=== PATIENT | male | born 1960 | race Caucasian/White ===

== ENCOUNTER 2016-11-24 10:04 | Emergency (ER) | payer OTHER ==
[~2016-11-24] VITALS: Ht 188 cm; Wt 143.0 kg
[~2016-11-24 10:04] MED LIST: CEPH500C3 PO; GLUCTAB PO; LISI-360 PO; OXYC15TA PO
[2016-11-24 10:08] VITALS: BP 161/101; PULSE 82; RESP 16; TEMP 98.2; O2SAT 98
[2016-11-24] MEDS ORDERED: LISI-519 PO (10:27)
[2016-11-24] MEDS ORDERED: OXYC15TA PO (10:27)
[2016-11-24] MEDS ORDERED: PROZ40CA PO (10:27)
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
[2016-11-24] MEDS ORDERED: IBUP-232 PO (10:53)
[2016-11-24] MEDS ORDERED: ROBA750T PO (10:53)
== END 2016-11-24 14:13 | disposition home or self-care (01) ==
LOC: NEPK 10:04
DX: S39.012A Strain of muscle, fascia and tendon of lower back, initial encounter (principal); V43.52XA Car driver injured in collision with other type car in traffic accident, initial encounter; Y92.488 Other paved roadways as the place of occurrence of the external cause
CPT/HCPCS: 72100; 99283

== ENCOUNTER 2018-01-14 08:58 | Observation (INO) ==
[2018-01-14] MEDS ORDERED: Aspirin 325 MG Tablet PO ONE (09:40)
--- NOTE | 2018-01-14 09:50 | ED ---
HPI General Chief complaint: Respiratory Symptoms Stated complaint: SOB/Chest Pain Complaint Time Seen by Provider: 01/14/18 09:32 Source: patient Mode of arrival: ambulatory Limitations: no limitations History of Present Illness HPI narrative: 57yo M with PMH of HTN, CAD [place] 15 years ago, DM not on any medications right now, ?COPD here with c/o chest tightness and sob for 3-4 days. Said sob and chest tightness occurs when he lies down or walks. Said he does not feel sob while sitting down. It has worsened since last night. +Cig smoker. + Cough. Denies any fever, hemoptysis, history of PE/DVT, n/v, abdominal pain, focal weakness or numbness. Related Data Home Medications Medication Instructions Recorded Confirmed fluticasone-vilanterol [Breo 1 inh INHALATION DAILY PRN 01/14/18 01/14/18 Ellipta] umeclidinium-vilanterol [Anoro 1 inh INHALATION Q24H PRN 01/14/18 01/14/18 Ellipta] Allergies Allergy/AdvReac Type Severity Reaction Status Date / Time Sulfa (Sulfonamide Allergy Unknown Rash Verified 01/14/18 10:24 Antibiotics) Review of Systems ROS: all other systems reviewed are negative [facility] Medical History Medical History COPD (chronic obstructive pulmonary disease) (Chronic) Diabetes (Chronic) Surgical History Surgical History H/O knee surgery (Chronic) History of eye surgery (Chronic) History of thumb surgery (Chronic) Family History Family History Father Hypertension Social History Social History Substance History: Active Abuse Second Hand Smoke Exposure: Yes Smoking Status: Former smoker Tobacco Type: Cigarettes How Often Do You Have a Drink Containing Alcohol: 2 to 4 times a month Recent Travel in [facility] within the Last 8 Weeks: No Recent Out of Country Travel within the Last 8 Weeks: No Immunization History Tetanus Immunization: Unsure Exam Narrative Exam Narrative: GENERAL: 57yo M in mild distress. SKIN: Focused skin assessment warm/dry. HEAD: Atraumatic. Normocephalic. EYES: Pupils equal and round. No scleral icterus. No injection or drainage. ENT: No nasal bleeding or discharge. Mucous membranes pink and moist. NECK: Trachea midline. No JVD. CARDIOVASCULAR: Regular rate and rhythm. No murmur appreciated. RESPIRATORY: No accessory muscle use. Clear to auscultation. Breath sounds equal bilaterally. GASTROINTESTINAL: Abdomen soft, non-tender, nondistended. MUSCULOSKELETAL: No obvious deformities. No clubbing. No cyanosis. +Bilateral lower extremity edema. NEUROLOGICAL: Awake and alert. No obvious cranial nerve deficits. Motor grossly within normal limits. Normal speech. PSYCHIATRIC: Appropriate mood and affect; insight and judgment normal. Course Initial Documented Vital Signs Temperature 98.5 F 01/14/18 09:01 Pulse Rate 86 01/14/18 09:01 Respiratory Rate 20 01/14/18 09:01 Blood Pressure 160/116 H 01/14/18 09:01 Pulse Oximetry 98 01/14/18 09:01 Last Documented Vital Signs Temperature 98.5 F 01/14/18 09:01 Pulse Rate 90 01/14/18 16:08 Respiratory Rate 16 01/14/18 15:34 Blood Pressure 132/86 01/14/18 15:34 Pulse Oximetry 96 01/14/18 19:04 Medical Decision Making MDM Narrative Medical decision making narrative: 57yo M with chest tightness and sob when exerting himself or laying down. Impression is more CHF but needs to r/o ACS as well. Will obtain EKG, labs, CXR. BP is elevated, will give aspirin, sublingual nitro. Since pt has a history of COPD, will give a few treatments and prednisone. Pt has not had a recent stress test and if pt is not in heart failure, or have pneumonia, can be observed in chest pain center. BNP is elevated at 362 Tn 0.03 EKG shows RBBB, rate 80, no ST elevations, right axis deviation present CXR normal CBC/CMP normal COPD with or without new onset CHF Duonebs offered subjective improvement Lasix 20mg IV started. d/w Dr Vegas for [facility] Medical Screen Exam Complete: Yes Emergency Medical Condition: Yes Differential Diagnosis Differential Diagnosis: CHF exacerbation vs. pneumonia vs. URI vs. COPD exacerbation vs. ACS Lab Data Result diagrams: 01/14/18 10:02 01/14/18 10:02 Lab Results 01/14/18 01/14/18 01/14/18 Range/Units 10:02 10:02 10:02 WBC 7.9 (4.0-11.0) th/mm3 RBC 4.99 (4.50-5.90) mil/mm3 Hgb 15.7 (13.0-17.0) gm/dL Hct 45.5 (39.0-51.0) % MCV 91.1 (80.0-100.0) fL MCH 31.4 (27.0-34.0) pg MCHC 34.4 (32.0-36.0) % RDW 14.2 (11.6-17.2) % Plt Count 238 (150-450) th/mm3 MPV 8.8 (7.0-11.0) fL Neut % (Auto) 54.1 (16.0-70.0) % Lymph % (Auto) 31.7 (9.0-44.0) % [place] % (Auto) 8.9 H (0.0-8.0) % Eos % (Auto) 4.2 H (0.0-4.0) % Baso % (Auto) 1.1 (0.0-2.0) % Neut # (Auto) 4.3 (1.8-7.7) th/mm3 Lymph # (Auto) 2.5 (1.0-4.8) th/mm3 [place] # (Auto) 0.7 (0.0-0.9) th/mm3 Eos # (Auto) 0.3 (0.0-0.4) th/mm3 Baso # (Auto) 0.1 (0.0-0.2) th/mm3 WBC Differential . Differential Comment Auto diff final PT 10.4 (9.8-11.6) sec INR 1.0 Ratio APTT 29.4 (23.4-31.7) sec Sodium 136 (136-145) meq/L Potassium 4.2 (3.5-5.1) meq/L Chloride 106 (98-107) meq/L Carbon Dioxide 23.6 (21.0-32.0) meq/L Anion Gap 6 (5-15) meq/L BUN 14 (7-18) mg/dL Creatinine 0.99 (0.60-1.30) mg/dL Estimated GFR 78 L (>89) mL/min POC Glucose (68-110) mg/dl Random Glucose 100 (74-106) mg/dL Calcium 8.7 (8.5-10.1) mg/dL Total Bilirubin 0.9 (0.2-1.0) mg/dL AST 23 (15-37) U/L ALT 33 (12-78) U/L Alkaline Phosphatase 66 (45-117) U/L Troponin I 0.03 (0.02-0.05) ng/mL B-Natriuretic Peptide (0-100) pg/mL Total Protein 7.6 (6.4-8.2) g/dL Albumin 3.6 (3.4-5.0) g/dL 01/14/18 01/14/18 01/14/18 Range/Units 10:02 15:24 15:41 WBC (4.0-11.0) th/mm3 RBC (4.50-5.90) mil/mm3 Hgb (13.0-17.0) gm/dL Hct (39.0-51.0) % MCV (80.0-100.0) fL MCH (27.0-34.0) pg MCHC (32.0-36.0) % RDW (11.6-17.2) % Plt Count (150-450) th/mm3 MPV (7.0-11.0) fL Neut % (Auto) (16.0-70.0) % Lymph % (Auto) (9.0-44.0) % [place] % (Auto) (0.0-8.0) % Eos % (Auto) (0.0-4.0) % Baso % (Auto) (0.0-2.0) % Neut # (Auto) (1.8-7.7) th/mm3 Lymph # (Auto) (1.0-4.8) th/mm3 [place] # (Auto) (0.0-0.9) th/mm3 Eos # (Auto) (0.0-0.4) th/mm3 Baso # (Auto) (0.0-0.2) th/mm3 WBC Differential Differential Comment PT (9.8-11.6) sec INR Ratio APTT (23.4-31.7) sec Sodium (136-145) meq/L Potassium (3.5-5.1) meq/L Chloride (98-107) meq/L Carbon Dioxide (21.0-32.0) meq/L Anion Gap (5-15) meq/L BUN (7-18) mg/dL Creatinine (0.60-1.30) mg/dL Estimated GFR (>89) mL/min POC Glucose 134 H (68-110) mg/dl Random Glucose (74-106) mg/dL Calcium (8.5-10.1) mg/dL Total Bilirubin (0.2-1.0) mg/dL AST (15-37) U/L ALT (12-78) U/L Alkaline Phosphatase (45-117) U/L Troponin I Less than 0.02 L (0.02-0.05) ng/mL B-Natriuretic Peptide 362 H (0-100) pg/mL Total Protein (6.4-8.2) g/dL Albumin (3.4-5.0) g/dL Imaging Data Radiologist's impression: Chest X-Ray 01/14/18 09:40 CONCLUSION: Negative examination. ECG Data EKG Prior to Arrival: No Attestation: I personally reviewed and interpreted this ECG as follows: Interpretation: NSR 80bpm. RBBB. MA interval 168ms. Q wave III, aVF. No significant ST elevation or depression. Discharge Plan Discharge Disposition Patient Disposition: ED Admit(ED Internal Use Only) Discharge Condition Condition: Stable Discharge Order Discharge Orders: ED Use Only Admit Order (Routine); Ordered 01/14/18 Ordered By: Bill Mooney Physicians Team ED Provider: Bill Mooney Primary Care Provider: Tiffany Lopez Attending Provider: Manju Vegas Status ED Status: Left Department Discharge Information Discharge Date/Time: 01/14/18 13:10
[2018-01-14 10:22] LABS: Baso # (Auto) 0.1 th/mm3 (0.0-0.2); Baso % (Auto) 1.1 % (0.0-2.0); Eos # (Auto) 0.3 th/mm3 (0.0-0.4); Eos % (Auto) 4.2 % (0.0-4.0); Hematocrit 45.5 % (39.0-51.0); Hemoglobin 15.7 gm/dL (13.0-17.0); Lymph # (Auto) 2.5 th/mm3 (1.0-4.8); Lymph % (Auto) 31.7 % (9.0-44.0); Mean Corpuscular HGB Conc 34.4 % (32.0-36.0); Mean Corpuscular Hemoglobin 31.4 pg (27.0-34.0); Mean Corpuscular Volume 91.1 fL (80.0-100.0); Mean Platelet Volume 8.8 fL (7.0-11.0); Mono # (Auto) 0.7 th/mm3 (0.0-0.9); Mono % (Auto) 8.9 % (0.0-8.0); Neut # (Auto) 4.3 th/mm3 (1.8-7.7); Neut % (Auto) 54.1 % (16.0-70.0); Platelet Count 238 th/mm3 (150-450); Red Blood Count 4.99 mil/mm3 (4.50-5.90); Red Cell Distribution Width 14.2 % (11.6-17.2); White Blood Count 7.9 th/mm3 (4.0-11.0)
[2018-01-14 10:29] LABS: Activated Partial Thrombo Time 29.4 sec (23.4-31.7); Prothrombin Time 10.4 sec (9.8-11.6)
[2018-01-14 10:41] LABS: Albumin 3.6 g/dL (3.4-5.0); Anion Gap 6 meq/L (5-15); Aspartate Aminotransferase 23 U/L (15-37); Blood Urea Nitrogen 14 mg/dL (7-18); Calcium 8.7 mg/dL (8.5-10.1); Carbon Dioxide 23.6 meq/L (21.0-32.0); Chloride 106 meq/L (98-107); Glomerular Filtration Rate 78 mL/min (>89); Glucose,Random 100 mg/dL (74-106); Potassium 4.2 meq/L (3.5-5.1); Sodium 136 meq/L (136-145)
[2018-01-14 10:42] LABS: Alanine Aminotransferase 33 U/L (12-78)
--- NOTE | 2018-01-14 10:44 | XR ---
EXAM DATE: 01/14/2018 10:41 AM EST AGE/SEX: 57 years / Male INDICATIONS: Dyspnea. Patient complains of shortness of breath. CLINICAL DATA: This is the patient's initial encounter. Patient reports that signs and symptoms have been present for 4 - 6 days and indicates a pain score of 0/10. MEDICAL/SURGICAL HISTORY: None. None. COMPARISON: No prior exams available for comparison. FINDINGS: A single AP view of the chest demonstrates the lungs to be symmetrically aerated without evidence of mass, infiltrate or effusion. The cardiomediastinal contours are unremarkable. Osseous structures a re intact. CONCLUSION: Negative examination. Electronically signed by: Milton Nur MD 01/14/2018 10:42 AM EST
[2018-01-14 10:45] LABS: Alkaline Phosphatase 66 U/L (45-117); Total Protein 7.6 g/dL (6.4-8.2); Troponin I 0.03 ng/mL (0.02-0.05)
[2018-01-14] MEDS ORDERED: Acetaminophen 325 MG Tablet PO PRN (11:49)
[2018-01-14] MEDS ORDERED: Bisacodyl 10 MG Supp RECTAL PRN (11:49)
[2018-01-14] MEDS ORDERED: Dextrose 50% in Water 50 ML Vial IV.PUSH PRN (12:12)
--- NOTE | 2018-01-14 12:16 | P.HPIM ---
History of Present Illness Primary Care Physician: Tiffany Lopez MD Chief Complaint: Shortness of breath History of Present Illness: 57-year-old white male with a history of COPD, diet- controlled diabetes mellitus presents to the emergency room with a 4-day history of worsening shortness of breath particularly on physical exertion and when he lays flat. Last night he had difficulty sleeping laying flat and only got 2 hours of sleep therefore came in for evaluation. He denies any productive cough or associated chills or fever. He thought initially was an upper sinus congestion and took some [id number] Mucinex which did not relieve his symptoms. He reports he had abnormal EKG in the past which may had showed some damage of his heart however has not had any type of stress test in the past. He denies a history of congestive heart failure. He denies any symptoms of increased lower extremity swelling. He reports some chest pressure that is only present when he has a hard time breathing. Review of Systems Constitutional: Reports as per HPI, Denies chills, Reports difficulty sleeping, Denies fatigue, Denies fever(s) and Denies headache(s) Eyes: Denies blurry vision, Denies change in vision and Denies eye pain Ears, Nose, Mouth, and Throat: Denies abnormal hearing, Denies headache(s), Denies mouth pain, Denies nasal congestion, Denies neck pain and Denies sore throat Cardiovascular: Reports chest pain, Denies rapid heart rate, Denies pedal edema , Denies palpitations, Reports dyspnea, Reports dyspnea on exertion, Reports orthopnea and Reports paroxysmal nocturnal dyspnea Respiratory: Reports cough, Denies hemoptysis, Reports dyspnea, Reports dyspnea on exertion and Denies wheezing Gastrointestinal: Denies abdominal pain, Denies constipation, Denies loose stools, Denies nausea and Denies vomiting Musculoskeletal: Denies back pain, Denies myalgias, Denies arthralgias, Denies neck pain and Denies numbness Skin/Breast: Denies new lesions and Denies rash Neurologic: Denies abnormal hearing, Denies headache(s), Denies focal weakness, Denies memory loss and Denies numbness Psychiatric: Denies anxiety, Denies depression and Denies memory loss Endocrine: Denies cold intolerance, Denies heat intolerance and Denies palpitations Hematologic/Lymphatic: Denies easy bleeding and Denies easy bruising [facility] Medical History Medical History COPD (chronic obstructive pulmonary disease) (Chronic) Diabetes (Chronic) Surgical History Surgical History H/O knee surgery (Chronic) History of eye surgery (Chronic) History of thumb surgery (Chronic) Family History Family History Father Hypertension Social History Social History Substance History: Active Abuse Second Hand Smoke Exposure: Yes Smoking Status: Former smoker Tobacco Type: Cigarettes How Often Do You Have a Drink Containing Alcohol: 2 to 4 times a month Recent Travel in [facility] within the Last 8 Weeks: No Recent Out of Country Travel within the Last 8 Weeks: No Immunization History Tetanus Immunization: Unsure Medications and Allergies Allergies Allergy/AdvReac Type Severity Reaction Status Date / Time Sulfa (Sulfonamide Allergy Unknown Rash Verified 01/14/18 10:24 Antibiotics) Home Medications Medication Instructions Recorded Confirmed Type fluticasone-vilanterol [Breo 1 inh INHALATION DAILY PRN 01/14/18 01/14/18 History Ellipta] umeclidinium-vilanterol [Anoro 1 inh INHALATION Q24H PRN 01/14/18 01/14/18 History Ellipta] Active Medications: Active Medications Acetaminophen (Tylenol) 650 mg PO Q4H PRN PRN Reason: Temp > 100.4 Al Hydroxide/Mg Hydroxide (Milk Of Magnesia Liq) 30 ml PO Q12H PRN PRN Reason: Mild Constipation Bisacodyl (Dulcolax Supp) 10 mg RECTAL DAILY PRN PRN Reason: SEVERE CONSITIPATION Furosemide (Lasix Inj) 40 mg IV.PUSH BID@0900,1800 CASE Lactulose (Lactulose Liq) 30 ml PO DAILY PRN PRN Reason: SEVERE CONSITIPATION Nitroglycerin (Nitrostat Sl) 0.4 mg SL Q5M PRN PRN Reason: DYSPNEA Ondansetron HCl (Zofran Inj) 4 mg IV.PUSH Q6H PRN PRN Reason: NAUSEA OR VOMITING Potassium Chloride (K-Dur) 20 meq PO BID CASE Sennosides (Senokot) 17.2 mg PO Q12H PRN PRN Reason: Moderate Constipation Sodium Chloride (Ns Flush) 2 ml IV.FLUSH BID CASE Sodium Chloride (Ns Flush) 2 ml IV.FLUSH PRN PRN PRN Reason: FLUSH AFTER USING IV ACCESS Physical Exam Vital signs: Last Vital Signs Temp 98.5 F 01/14/18 09:01 Pulse 84 01/14/18 11:00 Resp 22 01/14/18 11:00 BP 143/93 H 01/14/18 11:00 Pulse Ox 98 01/14/18 11:00 Intake & Output 01/12/18 01/13/18 01/14/18 01/15/18 06:59 06:59 06:59 06:59 Weight 145.15 kg Narrative: GENERAL: Well-nourished well-developed obese male in no acute distress SKIN: Warm and dry. HEAD: Atraumatic. Normocephalic. EYES: Pupils equal and round. No scleral icterus. No injection or drainage. ENT: No nasal bleeding or discharge. Mucous membranes pink and moist. NECK: Trachea midline. No JVD. CARDIOVASCULAR: Regular rate and rhythm, distant. RESPIRATORY: No accessory muscle use. Few expiratory wheezes upper lung bilaterally, no retractions seen. GASTROINTESTINAL: Abdomen soft, non-tender, obese nondistended. Normoactive bowel sounds MUSCULOSKELETAL: Extremities without clubbing, cyanosis, trace edema ankles bilaterally NEUROLOGICAL: Awake and alert to person place time situation. No obvious cranial nerve deficits. Motor grossly within normal limits. Five out of 5 muscle strength in the arms and legs. Normal speech. PSYCHIATRIC: Appropriate mood and affect; insight and judgment normal. Results Labs CBC & Chem 7: 01/14/18 10:02 01/14/18 10:02 Imaging Impressions Chest X-Ray 01/14/18 09:40 CONCLUSION: Negative examination. ECG Attestation: I personally reviewed and interpreted this ECG as follows: Prior ECG tracings: not available for review Interpretation: Sinus rhythm with right bundle branch block with heart rate 80 Caprini VTE Risk Assessment Caprini VTE Risk Assessment: Moderate/High Risk (score >= 2) Caprini Risk Assessment Model: Point Value = 1 Point Value = 2 Point Value = 3 Point Value = 5 Age 41-60 Minor surgery BMI > 25 kg/m2 Swollen legs Varicose veins or History of unexplained or recurrent spontaneous Oral contraceptives or hormone replacement Sepsis (< 1 month) Serious lung disease, including pneumonia (< 1 month) Abnormal pulmonary function Acute myocardial infarction Congestive heart failure (< 1 month) History of inflammatory bowel disease Medical patient at bed rest Age 61-74 Arthroscopic surgery Major open surgery (> 45 min) Laparoscopic surgery (> 45 min) Malignancy Confined to bed (> 72 hours) Immobilizing plaster cast Central venous access Age >= 75 History of VTE Family history of VTE Factor V Leiden Prothrombin [id number] Lupus anticoagulant Anticardiolipin antibodies Elevated serum homocysteine Heparin-induced thrombocytopenia Other congenital or acquired thrombophilia Stroke (< 1 month) Elective arthroplasty Hip, pelvis, or leg fracture Acute spinal cord injury (< 1 month) Prophylaxis Regimen: Total Risk Factor Score Risk Level Prophylaxis Regimen 0-1 Low Early ambulation 2 Moderate Order ONE of the following: *Sequential Compression Device (SCD) *Heparin 5000 units SQ BID 3-4 Higher Order ONE of the following medications: *Heparin 5000 units SQ TID *Enoxaparin/Lovenox 40 mg SQ daily (WT < 150 kg, CrCl > 30 mL/min) *Enoxaparin/Lovenox 30 mg SQ daily (WT < 150 kg, CrCl > 10-29 mL/min) *Enoxaparin/Lovenox 30 mg SQ BID (WT < 150 kg, CrCl > 30 mL/min) AND/OR *Sequential Compression Device (SCD) 5 or more Highest Order ONE of the following medications: *Heparin 5000 units SQ TID (Preferred with Epidurals) *Enoxaparin/Lovenox 40 mg SQ daily (WT < 150 kg, CrCl > 30 mL/min) *Enoxaparin/Lovenox 30 mg SQ daily (WT < 150 kg, CrCl > 10-29 mL/min) *Enoxaparin/Lovenox 30 mg SQ BID (WT < 150 kg, CrCl > 30 mL/min) AND *Sequential Compression Device (SCD) Assessment and Plan Plan 57-year-old white male with a history of diet-controlled diabetes mellitus, COPD presents to the emergency room with 4-day history of dyspnea on exertion, orthopnea, PND Shortness of breath with possible new onset of congestive heart failure exacerbation-observation for IV Lasix diuresis, monitor intake and output. Obtain 2D echo. History of COPDcontinue with DuoNeb treatments, dose of steroids given the emergency room. Not in acute exacerbation at this time. Chest pain with associated shortness of breath likely related to the new onset of CHFserial cardiac enzymes with EKG, initiate aspirin; based on results of serial cardiac enzyme consideration for further workup with nuclear stress test due to patient's abnormal EKG Diabetes mellitus, diet [id number] active complications continue with glucose monitor with sliding scale insulin. Elevated blood pressure, may have some component of hypertensionwe will continue monitor, start lisinopril, Vasotec as needed DVT prophylaxisLovenox.
[2018-01-14] MEDS: Lisinopril 10 MG Tablet PO SCH (13:23)
[2018-01-14] MEDS: Enoxaparin Inj 40 MG/0.4 ML Syringe SQ SCH (13:23)
[2018-01-14] MEDS: Insulin NovoLOG Aspart Correctional Sugar Inj SQ SCH ×2 (16:08→20:33)
[2018-01-15] MEDS: Insulin NovoLOG Aspart Correctional Sugar Inj SQ SCH ×4 (08:02→21:41)
[2018-01-15 08:12] LABS: Calcium 8.6 mg/dL (8.5-10.1); Carbon Dioxide 28.5 meq/L (21.0-32.0); Potassium 3.8 meq/L (3.5-5.1)
[2018-01-15] MEDS: Lisinopril 10 MG Tablet PO SCH (08:23)
[2018-01-15] MEDS: Aspirin 325 MG Tablet PO SCH (08:23)
--- NOTE | 2018-01-15 08:27 | ECG ---
Date Performed: 01/14/2018 Time Performed: 22:20:37 PTAGE: 57 years EKG: Sinus rhythm POSSIBLE LEFT ATRIAL ENLARGEMENT MARKED RIGHT AXIS DEVIATION RIGHT BUNDLE BRANCH BLOCK SEPTAL MYOCAR DIAL INFARCTION ABNORMAL ECG PREVIOUS TRACING : 01/14/2018 09.54 DOCTOR: Carlin Wong Interpretating Date/Time 01/15/2018 08:25:24
--- NOTE | 2018-01-15 09:52 | P.PN ---
Subjective Interval history: Follow-up for shortness of breath, suspected CHF exacerbation. Patient reports overall feeling slightly better today. He denies any shortness of breath while at rest, but does report dyspnea with exertion and continued orthopnea. States his lower extremity edema has improved some overnight. He denies ever having any chest pain. He reports a continued cough, mostly nonproductive overnight. Denies fevers or chills. Denies any other medical complaints at this time. Physical Exam Vital signs: Vital Signs 01/14/18 10:00 01/14/18 10:12 01/14/18 10:23 Temperature Pulse Rate 82 82 Respiratory Rate 17 18 Blood Pressure 154/89 H Pulse Oximetry 95 95 01/14/18 11:00 01/14/18 12:49 01/14/18 15:20 Temperature Pulse Rate 84 78 74 Respiratory Rate 22 23 17 Blood Pressure 143/93 H 151/98 H Pulse Oximetry 98 98 01/14/18 15:34 01/14/18 16:08 01/14/18 19:04 Temperature Pulse Rate 91 H 90 Respiratory Rate 16 Blood Pressure 132/86 Pulse Oximetry 94 L 96 01/14/18 20:00 01/14/18 20:30 01/14/18 23:43 Temperature 98.1 F 98.7 F Pulse Rate 89 94 H 78 Respiratory Rate 12 16 Blood Pressure 105/56 L 79/44 L Pulse Oximetry 95 93 L 01/15/18 04:00 01/15/18 07:31 01/15/18 07:54 Temperature 97.6 F 98.3 F Pulse Rate 76 84 84 Respiratory Rate 18 20 20 Blood Pressure 110/69 105/53 L Pulse Oximetry 96 95 Intake & Output 01/14/18 01/15/18 01/15/18 18:59 06:59 18:59 Intake Total 720 / 720 Output Total 300 / 300 Balance 720 / 720 -300 / -300 Weight 145.15 kg Intake: Oral 720 / 720 Output: Urine 300 / 300 Other: # Urine Diapers 3 Date of Last Bowel Movement 01/14/18 01/14/18 Narrative: GENERAL: Well-nourished, well-developed pleasant obese middle-aged male patient in [facility]. SKIN: Warm and dry. No rash. HEENT: Normocephalic. Atraumatic. Pupils equal and round. Mucous membranes pink and moist. CARDIOVASCULAR: Regular rate and rhythm. No murmur appreciated. RESPIRATORY: No accessory muscle use. Minimal anterior expiratory wheezing, with decreased breath sounds at bilateral bases. Breath sounds equal bilaterally. GASTROINTESTINAL: Abdomen soft, non-tender, nondistended. Normoactive bowel sounds x4. MUSCULOSKELETAL: No obvious deformities. Trace bilateral lower extremity edema around the ankles. NEUROLOGICAL: Awake and alert. No obvious cranial nerve deficits. Moving all extremities spontaneously. Normal speech. PSYCHIATRIC: Appropriate mood and affect; insight and judgment normal. Results - Labs CBC & Chem 7: 01/14/18 10:02 01/15/18 07:18 Laboratory Results - last 24 hr 01/14/18 01/14/18 01/14/18 10:02 10:02 10:02 WBC 7.9 RBC 4.99 Hgb 15.7 Hct 45.5 MCV 91.1 MCH 31.4 MCHC 34.4 RDW 14.2 Plt Count 238 MPV 8.8 Neut % (Auto) 54.1 Lymph % (Auto) 31.7 [place] % (Auto) 8.9 H Eos % (Auto) 4.2 H Baso % (Auto) 1.1 Neut # (Auto) 4.3 Lymph # (Auto) 2.5 [place] # (Auto) 0.7 Eos # (Auto) 0.3 Baso # (Auto) 0.1 WBC Differential . Differential Comment Auto diff final PT 10.4 INR 1.0 APTT 29.4 Sodium 136 Potassium 4.2 Chloride 106 Carbon Dioxide 23.6 Anion Gap 6 BUN 14 Creatinine 0.99 Estimated GFR 78 L POC Glucose Random Glucose 100 Calcium 8.7 Total Bilirubin 0.9 AST 23 ALT 33 Alkaline Phosphatase 66 Troponin I 0.03 B-Natriuretic Peptide Total Protein 7.6 Albumin 3.6 01/14/18 01/14/18 01/14/18 10:02 15:24 15:41 WBC RBC Hgb Hct MCV MCH MCHC RDW Plt Count MPV Neut % (Auto) Lymph % (Auto) [place] % (Auto) Eos % (Auto) Baso % (Auto) Neut # (Auto) Lymph # (Auto) [place] # (Auto) Eos # (Auto) Baso # (Auto) WBC Differential Differential Comment PT INR APTT Sodium Potassium Chloride Carbon Dioxide Anion Gap BUN Creatinine Estimated GFR POC Glucose 134 H Random Glucose Calcium Total Bilirubin AST ALT Alkaline Phosphatase Troponin I Less than 0.02 L B-Natriuretic Peptide 362 H Total Protein Albumin 01/14/18 01/14/18 01/15/18 20:25 22:12 07:18 WBC RBC Hgb Hct MCV MCH MCHC RDW Plt Count MPV Neut % (Auto) Lymph % (Auto) [place] % (Auto) Eos % (Auto) Baso % (Auto) Neut # (Auto) Lymph # (Auto) [place] # (Auto) Eos # (Auto) Baso # (Auto) WBC Differential Differential Comment PT INR APTT Sodium 138 Potassium 3.8 Chloride 104 Carbon Dioxide 28.5 Anion Gap 6 BUN 18 Creatinine 1.01 Estimated GFR 76 L POC Glucose 241 H Random Glucose 121 H Calcium 8.6 Total Bilirubin AST ALT Alkaline Phosphatase Troponin I Less than 0.02 L B-Natriuretic Peptide Total Protein Albumin 01/15/18 08:34 WBC RBC Hgb Hct MCV MCH MCHC RDW Plt Count MPV Neut % (Auto) Lymph % (Auto) [place] % (Auto) Eos % (Auto) Baso % (Auto) Neut # (Auto) Lymph # (Auto) [place] # (Auto) Eos # (Auto) Baso # (Auto) WBC Differential Differential Comment PT INR APTT Sodium Potassium Chloride Carbon Dioxide Anion Gap BUN Creatinine Estimated GFR POC Glucose 113 H Random Glucose Calcium Total Bilirubin AST ALT Alkaline Phosphatase Troponin I B-Natriuretic Peptide Total Protein Albumin - Imaging Impressions Chest X-Ray 01/14/18 09:40 CONCLUSION: Negative examination. Assessment and Plan - Plan 57-year-old white male with a history of diet-controlled diabetes mellitus, COPD presents to the emergency room with 4-day history of dyspnea on exertion, orthopnea, PND Shortness of breath/Dyspnea/LE Edema: suspected new onset of congestive heart failure exacerbation -CXR reviewed and unremarkable, however BNP elevated at 362 -continue on diuresis with IV Lasix 40mg bid -started on lisinopril 10mg daily, will add BB -monitor Is&Os -Obtain 2D echo Mild COPD Exacerbation: patient with occasional mild wheeze on exam -S/p prednisone 50mg x1 in the ED -will continue with prednisone 20mg bid x3days -continue with DuoNeb treatments -O2 as needed Chest pain: with associated shortness of breath likely related to the new onset of CHF -ACS ruled out with negative serial cardiac enzymes x3 -EKG without acute ischemic changes -continue aspirin -monitor on telemetry -patient denies any chest pain today Diabetes mellitus: diet [id number] -no active complications -continue with glucose monitor with sliding scale insulin. -expect higher blood glucose while on steroids, monitor closely Hypertension: BP has been elevated at times, no reported hx of HTN -started on lisinopril and metoprolol as above -monitor BP, adjust antihypertensives as needed DVT prophylaxisLovenox sq
--- NOTE | 2018-01-15 10:07 | ECG ---
Date Performed: 01/14/2018 Time Performed: 09:54:01 PTAGE: 57 years EKG: Sinus rhythm MARKED RIGHT AXIS DEVIATION RIGHT BUNDLE BRANCH BLOCK Left anterior fascicular block Prolonged QTc A BNORMAL ECG NO PREVIOUS TRACING DOCTOR: Yogesh Chavez Interpretating Date/Time 01/15/2018 10:06:15
[2018-01-15] MEDS: Enoxaparin Inj 40 MG/0.4 ML Syringe SQ SCH (14:56)
--- NOTE | 2018-01-15 20:46 | ECHRPT ---
Indication: HEART FAILURE CONCLUSIONS Mildly dilated left ventricle. Mild concentric left ventricular hypertrophy. The left ventricular systolic function is mildly to moderately reduced with an estimated ejection fr action in the range of 40-45%. Trace mitral valve regurgitation. The estimated pulmonary arterial pressure is 17 mmHg. There is trace tricuspid valve regurgitation. BP: / HR: Rhythm: MEASUREMENTS (Male / Female) Normal Values Technical Quality: 2D ECHO LV Diastolic Diameter PLAX 6.3 cm 4.2 - 5.9 / 3.9 - 5.3 cm LV Systolic Diameter PLAX 5.5 cm IVS Diastolic Thickness 1.4 cm 0.6 - 1.0 / 0.6 - 0.9 cm LVPW Diastolic Thickness 1.5 cm 0.6 - 1.0 / 0.6 - 0.9 cm LV Relative Wall Thickness 0.5 RV Internal Dim ED PLAX 3.1 cm LVOT Diameter 2.6 cm Aortic Root Diameter 2.6 cm LA Systolic Diameter LX 3.4 cm 3.0 - 4.0 / 2.7 - 3.8 cm LV Ejection Fraction MOD BP 37.8 % >= 55 % LV Ejection Fraction MOD 4C 40.4 % LV Ejection Fraction 4C AL 42.6 % LV Ejection Fraction MOD 2C 35.8 % LV Ejection Fraction 2C AL 39.2 % M-MODE Aortic Root Diameter MM 3.4 cm LA Systolic Diameter MM 3.8 cm LA Ao Ratio MM 1.1 AV Cusp Separation MM 1.6 cm DOPPLER AV Peak Velocity 175.0 cm/s AV Peak Gradient 12.3 mmHg LVOT Peak Velocity 89.8 cm/s LVOT Peak Gradient 3.2 mmHg AV Area Cont Eq pk 2.7 cm Mitral E Point Velocity 66.1 cm/s Mitral A Point Velocity 78.0 cm/s Mitral E to A Ratio 0.8 LV E' Lateral Velocity 4.8 cm/s Mitral E to LV E' Lateral Ratio 13.8 LV E' Septal Velocity 5.7 cm/s Mitral E to LV E' Septal Ratio 11.7 TR Peak Velocity 134.0 cm/s TR Peak Gradient 7.2 mmHg Right Atrial Pressure 10.0 mmHg Pulmonary Artery Systolic Pressu 17.2 mmHg Right Ventricular Systolic Press 17.2 mmHg PV Peak Velocity 114.0 cm/s PV Peak Gradient 5.2 mmHg FINDINGS LEFT VENTRICLE Mildly dilated left ventricle. Mild concentric left ventricular hypertrophy. The left ventricular systolic function is mildly to moderately reduced with an estimated ejection fr action in the range of 40-45%. RIGHT VENTRICLE Normal right ventricular size and systolic function. LEFT ATRIUM The left atrial size is normal. RIGHT ATRIUM The right atrial size is normal. ATRIAL SEPTUM Normal atrial septal thickness without atrial level shunting by limited color doppler interrogation. AORTA The aortic root and proximal ascending aorta are normal in size on limited imaging. MITRAL VALVE Trace mitral valve regurgitation. AORTIC VALVE Trileaflet aortic valve. No aortic valve stenosis or regurgitation. TRICUSPID VALVE The estimated pulmonary arterial pressure is 17 mmHg. There is trace tricuspid valve regurgitation. PULMONARY VALVE No pulmonary valve regurgitation or stenosis. VESSELS The inferior vena cava is normal in size. PERICARDIUM No pericardial effusion. Roshan Cast MD, FACC (Electronically Signed) Final Date:15 January 2018 20:45
[2018-01-15] MEDS: Metoprolol Tartrate 25 MG Tablet PO SCH (21:30)
[2018-01-15] MEDS: predniSONE 20 MG Tablet PO SCH (21:30)
[2018-01-16] MEDS: Insulin NovoLOG Aspart Correctional Sugar Inj SQ SCH ×4 (07:48→21:41)
[2018-01-16] MEDS ORDERED: Regadenoson Inj 0.4 MG/5 ML Syringe IV.PUSH ONE (08:05)
--- NOTE | 2018-01-16 09:24 | NM ---
EXAM DATE: 01/16/2018 9:17 AM EST AGE/SEX: 57 years / Male INDICATIONS:Angina. . Chest pain. CLINICAL DATA: This is the patient's initial encounter. Patient reports that signs and symptoms have been present for 1 day and indicates a pain score of 2/10. MEDICAL/SURGICAL HISTORY: Diabetes mellitus type II. Chronic obstructive pulmonary disease. . Right knee surgery. COMPARISON: No prior exams available for comparison. DOSE: 30.3 mCi Tc 99m Myoview at rest 30.2 mCi [id number] at stress 0.4 mg Lexiscan STRESS SYMPTOMS: None. EJECTION FRACTION: 23 % TECHNIQUE: The patient underwent pharmacologic stress with infusion of prescribed dose. Continuous ECG tracing was monitored during stress. Gated SPECT imaging was performed after stress and conventi onal SPECT imaging was performed at rest. The examination was performed on a SPECT/CT scanner, both attenuation and non-corrected datasets were reviewed. Two day protocol was used. FINDINGS: This study is abnormal. There is a large fixed defect in the anterior wall without redistribution sug gest ischemia. There is moderate gut activity obscuring the inferior wall. There is minimal redistrib ution in the lateral wall involving a large segment extending from mid ventricular wall to the base. Ejection fraction is calculated at 23% with dilatation of ventricular cavity and significant hypokine sis of the anterior and lateral wall. RISK CATEGORY: High (>3% Annual Morality Rate) CONCLUSION: 1. Redistribution as above suggesting ischemia. Electronically signed by: Thien Anders MD 01/16/2018 9:22 AM EST
[2018-01-16] MEDS: predniSONE 20 MG Tablet PO SCH ×2 (09:52→21:39)
[2018-01-16] MEDS: Metoprolol Tartrate 25 MG Tablet PO SCH ×2 (09:52→21:39)
[2018-01-16] MEDS: Aspirin 325 MG Tablet PO SCH (09:52)
[2018-01-16] MEDS: Lisinopril 10 MG Tablet PO SCH (09:53)
--- NOTE | 2018-01-16 11:41 | P.PN ---
Subjective Interval history: Follow-up for shortness of breath, new onset CHF. Patient reports improvement of his shortness of breath overnight, however still becomes slightly dyspneic with exertion and still with mild orthopnea. He states he prefers to sit upright on the side of the bed. He denies any chest pain. He denies any other medical complaints. Discussed his abnormal nuclear stress test and echocardiogram with likely recommendations from facilities operations technician for cardiac catheterization, patient verbalized understanding and wishes to proceed. Physical Exam Vital signs: Vital Signs 01/15/18 14:07 01/15/18 16:29 01/15/18 19:40 Temperature 98.4 F Pulse Rate 83 85 100 H Respiratory Rate 20 20 17 Blood Pressure 123/69 Pulse Oximetry 97 01/15/18 20:00 01/15/18 20:50 01/16/18 00:00 Temperature 97.6 F 98.4 F Pulse Rate 92 H 97 H 77 Respiratory Rate 17 20 Blood Pressure 113/61 112/71 Pulse Oximetry 95 93 L 01/16/18 04:00 01/16/18 07:30 Temperature 97.6 F Pulse Rate 84 91 H Respiratory Rate 20 20 Blood Pressure 122/82 Pulse Oximetry 93 L 96 Intake & Output 01/15/18 01/16/18 01/16/18 18:59 06:59 18:59 Intake Total 260 / 260 720 / 720 Output Total 600 / 600 Balance -340 / -340 720 / 720 Intake: Oral 260 / 260 720 / 720 Output: Urine 600 / 600 Other: # Voids 2 6 Date of Last Bowel Movement 01/14/18 01/14/18 Narrative: GENERAL: Well-nourished, well-developed pleasant obese middle-aged male patient in [facility]. SKIN: Warm and dry. No rash. HEENT: Normocephalic. Atraumatic. Pupils equal and round. Mucous membranes pink and moist. CARDIOVASCULAR: Regular rate and rhythm. No murmur appreciated. RESPIRATORY: No accessory muscle use. Minimally decreased breath sounds at bilateral bases, otherwise clear to auscultation, no wheezing today. Breath sounds equal bilaterally. GASTROINTESTINAL: Abdomen soft, non-tender, nondistended. Normoactive bowel sounds x4. MUSCULOSKELETAL: No obvious deformities. Trace bilateral lower extremity edema around the ankles. NEUROLOGICAL: Awake and alert. No obvious cranial nerve deficits. Moving all extremities spontaneously. Normal speech. PSYCHIATRIC: Appropriate mood and affect; insight and judgment normal. Results - Labs CBC & Chem 7: 01/14/18 10:02 01/15/18 07:18 Laboratory Results - last 24 hr 01/15/18 01/15/18 01/15/18 13:02 17:11 21:35 POC Glucose 96 79 130 H 01/16/18 07:36 POC Glucose 117 H - Imaging Impressions Myocardial Perfusion Scan Nuc Med 01/15/18 00:00 CONCLUSION: 1. Redistribution as above suggesting ischemia. Assessment and Plan - Plan 57-year-old white male with a history of diet-controlled diabetes mellitus, COPD presents to the emergency room with 4-day history of dyspnea on exertion, orthopnea, PND New Onset CHF with Shortness of breath/Dyspnea/LE Edema: suspected new onset of congestive heart failure exacerbation -CXR reviewed and unremarkable, however BNP elevated at 362 -continue on diuresis with IV Lasix 40mg bid -started on lisinopril 10mg daily, metoprolol 25 mg twice daily -monitor Is&Os -Echocardiogram showed EF 40-45% -slowly improving, continue diuresis, ongoing ischemic work up as below Chest pain: with associated shortness of breath likely related to the new onset of CHF vs CAD -ACS ruled out with negative serial cardiac enzymes x3 -EKG with concern for septal infarction -give aspirin, statin, BB, CYNDY -monitor on telemetry -chest pain currently resolved -Lexiscan showed large anterior wall ischemic defect -Cardiology consulted, planning for cardiac catheterization later today Mild COPD Exacerbation: patient with occasional mild wheeze on exam -S/p prednisone 50mg x1 in the ED -will continue with prednisone 20mg bid x3days -continue with DuoNeb treatments -O2 as needed -wheezing resolved Diabetes mellitus: diet [id number] -no active complications -continue with glucose monitor with sliding scale insulin. -expect higher blood glucose while on steroids, monitor closely Hypertension: BP has been elevated at times, no reported hx of HTN -started on lisinopril and metoprolol as above -monitor BP, adjust antihypertensives as needed DVT prophylaxisLovenox sq Discharge Planning: Going for cardiac catheterization today, further disposition to follow per cardiology.
[2018-01-16] MEDS ORDERED: Iohexol 350 MG/ML 50 ML Vial (for Cath Lab) IVCONTRAST ONE (11:53)
[2018-01-16] MEDS ORDERED: Iohexol 350 MG/ML 100 ML Vial (for Cath Lab) IVCONTRAST ONE (11:53)
[2018-01-16] MEDS: FLUoxetine 20 MG Capsule PO SCH (12:08)
[2018-01-16] MEDS: Enoxaparin Inj 40 MG/0.4 ML Syringe SQ SCH (12:08)
--- NOTE | 2018-01-16 14:31 | P.CONCA ---
History of Present Illness Service: Cardiology Consult date: 01/16/18 Reason for Consult: Abnormal stress test Primary Care Provider: Tiffany Lopez MD Chief Complaint: Shortness of breath History of Present Illness: This is a 57-year-old male with history of COPD and diabetes who presented to the emergency department with progressive shortness of breath. Patient was diagnosed with new onset congestive heart failure. Lexiscan was ordered. EKG was noted to be abnormal. Lexiscan revealed an ischemic defect were consulted for further recommendations Review of Systems All other systems reviewed negative except as stated in HPI [facility] - History History Provided By: Patient - Medical History Medical History: Medical History (Last Updated 01/14/18 @ 12:20 by Manju Vegas MD) COPD (chronic obstructive pulmonary disease) Diabetes - Surgical History Surgical History: Surgical History (Last Updated 01/14/18 @ 12:20 by Manju Vegas MD) H/O knee surgery History of eye surgery History of thumb surgery - Family History Family History: Family History Father Hypertension - Tobacco History Second Hand Smoke Exposure: Yes Tobacco Use In Past 30 Days: Yes Smoking Status: Former smoker Tobacco Type: Cigarettes - Alcohol History How Often Do You Have a Drink Containing Alcohol: 2 to 4 times a month - Substance Use History Substance History: Active Abuse - Substance Use Type Marijuana Status: Active Route Used: Inhalation - Travel History Recent Travel in the [place] Within the Last 8 Weeks: No Recent Travel Out of the Country Within the Last 8 Weeks: No - Immunization History Tetanus Immunization: Unsure Medications and Allergies Active Medications: Active Medications Acetaminophen (Tylenol) 650 mg PO Q4H PRN PRN Reason: Temp > 100.4 Last Admin: 01/14/18 20:32 Dose: 650 mg Al Hydroxide/Mg Hydroxide (Milk Of [place] Liq) 30 ml PO Q12H PRN PRN Reason: Mild Constipation Albuterol (Duoneb Neb (Jackson)) 1 ampul NEB Q6HR WHILE AWAKE NEB JACKSON Last Admin: 01/16/18 07:28 Dose: 1 ampul Aspirin (Aspirin) 325 mg PO DAILY JACK[place] Last Admin: 01/16/18 09:52 Dose: 325 mg Bisacodyl (Dulcolax Supp) 10 mg RECTAL DAILY PRN PRN Reason: SEVERE CONSITIPATION Dextrose (D50w Vial) 50 ml IV.PUSH UNSCH PRN PRN Reason: PER HYPOGLYCEMIA PROTOCOL Enalaprilat (Vasotec Inj) 1.25 mg IV.PUSH Q6H PRN PRN Reason: SEE LABEL COMMENTS Enoxaparin Sodium (Lovenox Inj) 40 mg SQ Q24H [facility] Last Admin: 01/16/18 12:08 Dose: 40 mg Fluoxetine HCl (Prozac) 40 mg PO DAILY [facility] Last Admin: 01/16/18 12:08 Dose: 40 mg Furosemide (Lasix Inj) 40 mg IV.PUSH BID@0900,1800 [facility] Last Admin: 01/16/18 09:53 Dose: 40 mg Glucagon (Glucagon Inj) 1 mg OTHER UNSCH PRN PRN Reason: for Hypoglycemia Protocol Insulin Aspart (Novolog Insulin Correctional Sugar Inj) 0 unit SQ ACHS [facility]; Protocol Last Admin: 01/16/18 12:08 Dose: Not Given Lactulose (Lactulose Liq) 30 ml PO DAILY PRN PRN Reason: SEVERE CONSITIPATION Lisinopril (Prinivil) 10 mg PO DAILY [facility] Last Admin: 01/16/18 09:53 Dose: 10 mg Metoprolol Tartrate (Lopressor) 25 mg PO BID [facility] Last Admin: 01/16/18 09:52 Dose: 25 mg Nitroglycerin (Nitrostat Sl) 0.4 mg SL Q5M PRN PRN Reason: DYSPNEA Ondansetron HCl (Zofran Inj) 4 mg IV.PUSH Q6H PRN PRN Reason: NAUSEA OR VOMITING Potassium Chloride (K-Dur) 20 meq PO BID [facility] Last Admin: 01/16/18 09:52 Dose: 20 meq Prednisone (Deltasone) 20 mg PO BID [facility] Stop: 01/18/18 20:59 Last Admin: 01/16/18 09:52 Dose: 20 mg Sennosides (Senokot) 17.2 mg PO Q12H PRN PRN Reason: Moderate Constipation Sodium Chloride (Ns Flush) 2 ml IV.FLUSH BID [facility] Last Admin: 01/16/18 09:56 Dose: 2 ml Sodium Chloride (Ns Flush) 2 ml IV.FLUSH UNSCH PRN PRN Reason: FLUSH AFTER USING IV ACCESS Allergies Allergy/AdvReac Type Severity Reaction Status Date / Time Sulfa (Sulfonamide Allergy Unknown Rash Verified 01/14/18 10:24 Antibiotics) Home Medications Medication Instructions Recorded Confirmed Type fluticasone-vilanterol [Breo 1 inh INHALATION DAILY PRN 01/14/18 01/14/18 History Ellipta] umeclidinium-vilanterol [Anoro 1 inh INHALATION Q24H PRN 01/14/18 01/14/18 History Ellipta] fluoxetine [Prozac] 40 mg PO DAILY 01/16/18 01/16/18 History Exam Vital signs: Vital Signs 01/15/18 16:29 01/15/18 19:40 01/15/18 20:00 Temperature 98.4 F 97.6 F Pulse Rate 85 100 H 92 H Respiratory Rate 20 17 17 Blood Pressure 123/69 113/61 Pulse Oximetry 97 95 01/15/18 20:50 01/16/18 00:00 01/16/18 04:00 Temperature 98.4 F 97.6 F Pulse Rate 97 H 77 84 Respiratory Rate 20 20 Blood Pressure 112/71 122/82 Pulse Oximetry 93 L 93 L 01/16/18 07:30 01/16/18 12:00 Temperature 97.9 F Pulse Rate 91 H 73 Respiratory Rate 20 16 Blood Pressure 101/69 Pulse Oximetry 96 95 Intake & Output 01/15/18 01/16/18 01/16/18 18:59 06:59 18:59 Intake Total 260 / 260 720 / 720 Output Total 600 / 600 Balance -340 / -340 720 / 720 Intake: Oral 260 / 260 720 / 720 Output: Urine 600 / 600 Other: # Voids 2 6 Date of Last Bowel Movement 01/14/18 01/14/18 - Constitutional no acute distress - Routine HEENT Exam Eye: Present: EOMI, PERRL ENT: Present: mucous membranes moist - Routine Neck Exam Absent: JVD - Routine Respiratory Exam Present: CTA bilaterally - Routine Cardiovascular Exam Present: RRR. Absent: murmur - Routine Abdominal Exam Present: soft, normoactive bowel sounds - Routine Extremities Exam Present: pulses intact. Absent: edema - Routine Neurological Exam Present: oriented X3, CN II-XII intact. Absent: sensory deficit, motor deficit Results 01/14/18 10:02 01/15/18 07:18 Cardiac Enzymes 01/14/18 01/14/18 Range/Units 15:41 22:12 Troponin I Less than 0.02 L Less than 0.02 L (0.02-0.05) ng/mL Comprehensive Metabolic Panel 01/15/18 Range/Units 07:18 Sodium 138 (136-145) meq/L Potassium 3.8 (3.5-5.1) meq/L Chloride 104 (98-107) meq/L Carbon Dioxide 28.5 (21.0-32.0) meq/L BUN 18 (7-18) mg/dL Creatinine 1.01 (0.60-1.30) mg/dL Calcium 8.6 (8.5-10.1) mg/dL Intake and Output 01/15/18 01/16/18 01/16/18 22:59 06:59 14:59 Intake Total 260 / 260 720 / 720 Output Total 300 / 300 Balance -40 / -40 720 / 720 Intake: Oral 260 / 260 720 / 720 Output: Urine 300 / 300 Other: # Voids 2 6 Date of Last Bowel Movement 01/14/18 - Imaging and Cardiology Imaging: Impressions Myocardial Perfusion Scan Nuc Med 01/15/18 00:00 CONCLUSION: 1. Redistribution as above suggesting ischemia. EKG interpretations - Dysrhythmias Sinus rhythms and dysrhythmias: sinus rhythm - Blocks, axis, hypertrophy, ST abn AV and intraventricular conduction: right bundle branch block (fixed/ intermittent, complete/incomplete) Assessment and Plan - Assessment (1) Acute on chronic combined systolic and diastolic ACC/AHA stage C congestive heart failure Code(s): I50.43 - Acute on chronic combined systolic (congestive) and diastolic (congestive) heart failure Status: Acute (2) Abnormal stress test Code(s): R94.39 - Abnormal result of other cardiovascular function study Status: Acute - Plan Acute on chronic systolic and diastolic congestive heart failure Gentle diuresis. Initiation of low-dose angiotensin-converting enzyme inhibitor therapy. Initiation of low-dose beta-marty therapy. Lexiscan showed large anterior wall ischemic defect. Given that shortness of breath may be this patient's anginal equivalent along with the abnormality on the stress test, we will proceed with cardiac catheterization. Keep patient n.p.o. Will attempt for cardiac catheterization later today. Continue guideline directed medical therapy.
[2018-01-16] MEDS ORDERED: Heparin/NS PF Inj 1,000 ML ONE (14:45)
[2018-01-16] MEDS ORDERED: Heparin 10,000 UNITS/10 ML Vial (for IV use) ONE (14:46)
[2018-01-16] MEDS ORDERED: fentaNYL Citrate Inj 100 MCG/2 ML Ampul ONE (14:46)
--- NOTE | 2018-01-16 15:40 | P.PCN ---
Date of procedure: 01/16/18 Pre-op diagnosis: Unstable angina, systolic congestive heart failure Procedure: twisting press operator: Zak Wong MD Procedures performed: 1. Fluoroscopy with interpretation 2. Coronary angiography 3. Percutaneous coronary intervention with bare-metal stent to the mid left circumflex coronary artery and second obtuse marginal branch Methods: Risks, benefits, and alternatives were discussed with the patient. Patient understood and consented to the procedure. Patient was brought into the cardiac catheterization lab and placed on the catheterization table. The patient's right wrist was prepped and draped in a sterile fashion. The right wrist was anesthetized with 1% lidocaine. Right wrist was cannulated and a 6 Ugandan 11 cm sheath was placed without difficulty. 200 mcg of intra-arterial nitroglycerin was administered and 5000 units of intravenous heparin. Coronary angiography: The left main coronary artery was selectively engaged with a 5 Ugandan JL 3.5 Joss catheter. The right coronary circulation was selectively engaged with a 5 Ugandan JR 5 Joss catheter. 1. Left main coronary artery is widely patent 2. Left anterior descending coronary artery has minor luminal irregularities of approximately 30% in the mid segment with mild calcium present 3. Left circumflex coronary artery has a 80% discrete stenosis in the ostium of the second obtuse marginal branch and approximate 75% stenosis in the mid left circumflex coronary artery. 4. Right coronary is a dominant vessel giving rise to the posterior descending branch. The right coronary artery has mild to moderate nonobstructive disease in the mid distal segment. Conclusions: 1. Single-vessel coronary artery disease involving the left circumflex coronary artery 2. Successful percutaneous coronary intervention with bare-metal stents to the mid left circumflex and second obtuse marginal branches Plan: Guideline directed medical therapy. Sheath removed and Hemoband applied. Monitor for postprocedural complications. aspirin, plavix, BB, statin, ACEi Discharge planning for tomorrow
[2018-01-16] MEDS ORDERED: Misc Info for Pharmacy OTHER STA (15:41)
--- NOTE | 2018-01-16 15:55 | CATHPROC ---
[employer] HIS Report Study Information Study Number Admission Scheduled Start Study Start [id number] Jan 14 2018 11:52AM 01/16/2018 Jan 16 2018 2:37PM [place] Cardiac Catheterization Admit Source Facility Department Emergency department [facility] - Store Mgr Physician and Clinical Staff Initial Carlin Rosales Steam Room Attendant Hawa Walker RN Other Hesher, Sharon, RN Recorder Mitzy Aguilar,TIMBER INCISOR OPERATOR TECH2 Scrub Student, TIMBER INCISOR OPERATOR/RT(R) Procedures Performed Procedure Location (Site) Vessel Name Coronary Angiograms LCA Left Coronary Stent CIRC Mid CIRC Stent OM2 Prox CIRC Wire insertion Radial (right) Radial Art. Equipment Time Tuna Purse Seiner Description Size Mfg Part Number Used/Scraped TRANSDUCER, TRUWAVE [id number] 14:43 [email or web address] * Used W/STOCKCOCK *[id number] [id number] *[id number] [id number] *[id number] *[id number] 14:43 [employer] BLANKET,WARM AIR CCL * Used *[id number] 14:43 [employer] PACK, CCL CUSTOM * Used *[id number] 14:43 [employer] SUPPORT, ARTERIAL ADULT [id number] *[id number] Used [id number] 15:24 MEDTRONIC STENT, 2.25 8 INTEGRITY 2.25 8 Used *[id number] 15:26 MEDTRONIC STENT, 2.25 8 INTEGRITY 2.25 8 Used *[id number] 15:28 MEDTRONIC STENT, 2.5 8 INTEGRITY 2.5 8 Used *[id number] 15:19 StayTuned 30 MIC INDEFLATOR Used *[id number] BAND, RADIAL COMPRESSION TR [id number] 15:34 [employer] MEDICAL 29CM Used LARGE 29 *[id number] SHEATH, FR6 RADIAL PRELUDE 14:43 StayTuned FR 6 [id number] Used EASE 11CM [id number] 15:09 Stay[employer]uned SHEATH, FR6.5 PRELUDE 11CM FR 6.5 038ACT Used *[id number] 14:43 [employer] WIRE, EXCHANGE 260CM 3MMJ 260CM Used *[id number] 14:43 NAMIC MANIFOLD, 4 PORT * Used *[id number] 14:43 NYCOMED OMNIPAQUE, 350 MG, 150ML 150ML [id number] Used 15:30 NYCOMED OMNIPAQUE, 350 MG, 50ML 50ML [id number] Used WIRE, RUNTHROUGH NS FLOPPY [id number] 15:19 [employer] MEDICAL 180CM Used .014 180CM *[id number] Equipment Model, Serial, Lot Number and Expiration Data Description Model Number Serial Number Lot Number Expiration Date STENT, 2.25 8 INTEGRITY [id number] 04-18-2019 STENT, 2.5 8 INTEGRITY [id number] 08-22-2019 History: Current Medications Medication Dosage/Unit Route Frequency Last Date/Time Taken Prozac History: Allergies Allergy Reaction Sulfa (Sulfonamide Antibiotics) Rash History: Risk Factors Family History of Hypertension Dyslipidemia Previous IN Previous Heart Failure Premature CAD Yes Yes No No Yes Prior Valve Prior PCI Prior CABG Surgery No No No Cerebrovascular Peripheral Artery Chronic Lung On Dialysis Diabetes Diabetes Therapy Disease Disease Disease No No No Yes Yes Diet History: Symptoms/Diagnosis Selection Items Chest pain SOB History: Stress Tests Stress or Imaging Studies Performed Yes Standard Exercise Stress Test No Stress Echo No Stress Test SPECT Stress Test SPECT Result Stress Test SPECT Ischemia Risk/Extent Yes Positive High Stress Test CMR No Cardiac CTA Coronary Calcium Score No No History: Other Current Smoker Method Packs a Day Years Used Pack Years Yes Cigarettes 1 45 45 Labs Hgb (g/dl) Hct (%) WBC (l/cumm) Platelets (thousands) 11.60-17.00 35.00-51.00 4.00-11.00 150.00-450.00 15.7 45.5 7.9 238 Glucose (mg/dl) BUN (mg/dl) Creatinine (mg/dl) BUN:Creatinine (1:x) 74.00-106.00 7.00-18.00 0.50-1.30 10.00-20.00 113 18 1.0 18 Na (meq/l) K (meq/l) 136.00-145.00 3.50-5.10 138 3.8 INR (PTT:PT) 0.90-1.10 1 Troponin I (ng/ml) CPK-MB (ng/ML) 0.02-0.05 0.50-3.60 0.02 Not Drawn Medication Medication Total Dose (Bolus/Oral) Medication Total Dosage/Unit 1% XYLOCAINE 20 mL ANGIOMAX BOLUS 22 mL FENTANYL 50 mcg HEPARIN 5000 units NTG (IC) 200 mcg PLAVIX 600 mg VERSED 2 mg Medications (Bolus/Oral) Medication Time Given Dosage/Unit Administered By Reason VERSED 01/16/2018 3:03:53 PM 2 mg Hawa Walker 2 mg VERSED given in lab by Hawa Walker RN in Left Antecubital via Peripheral IV. Ordered by Carlin Otto. FENTANYL 01/16/2018 3:04:05 PM 50 mcg Hawa Walker 50 mcg FENTANYL given in lab by Hawa Walker RN in Left Antecubital via Peripheral IV. Ordered by Carlin Wong. 1% XYLOCAINE 01/16/2018 3:06:40 PM 20 mL Hawa Walker 20 mL 1% XYLOCAINE given in lab by Hawa Walker RN in Right Radial via Subcutaneous. Ordered by Carlin Rodriguez. NTG (IC) 01/16/2018 3:07:58 PM 200 mcg Carlin Wong 200 mcg NTG (IC) given in lab by Carlin Wong in Right Radial via Intra-coronary. Ordered by Carlin Wong. HEPARIN 01/16/2018 3:09:05 PM 5000 units Hawa Walker 5000 units HEPARIN given in lab by Hawa Walker RN in Left Antecubital via Peripheral IV. Ordered by Carlin Wong. ANGIOMAX BOLUS 01/16/2018 3:20:53 PM 22 mL Carlin Wong 22 mL ANGIOMAX BOLUS given in lab by Carlin Wong in Left Antecubital via Peripheral IV. Ordered by Carlin Wong. PLAVIX 01/16/2018 3:42:35 PM 600 mg Hawa Walker 600 mg PLAVIX given in lab by Hawa Walker RN via Oral. Ordered by Carlin Wong. Medication (Drip) Medication Time Given Dosage/Unit Concentration/Unit Diluent (ml) Solution ANGIOMAX DRIP 01/16/2018 3:24:40 PM 1.75 mg/kg/hr 250 mg 50 NaCl .9 1.75 mg/kg/hr ANGIOMAX DRIP given in lab by Hawa Walker RN in Left Antecubital via Peripheral IV . Pump/Drip Flow = 50.78 ml/hr using NaCl .9 with a concentration of 250 mg in 50 ml. Ordered by Carlin Wong. IV Solutions 01/16/2018 2:37:31 PM 0 mL (IV) 500 NaCl .9 Patient arrived on IV Solutions in Left Antecubital via Peripheral IV. Pump/Drip Flow = 20 ml/hr usin g NaCl .9. Initial Case Assessment Cardiovascular HR Rhythm NIBP Chest Pain 74 sr 120/75 0 Circulatory - Right Pulses Dorsalis Pedis Femoral 1 1 Scale (0,1,2,3,4,d) Circulatory - Left Pulses Dorsalis Pedis Femoral 1 1 Scale (0,1,2,3,4,d) Neurological State Oriented to time-place- Alert Moves all extremities person Respiration - General Respiration Rate SpO2 (%) (B/min) 11 96 Final Case Assessment Cardiovascular HR Rhythm NIBP Chest Pain 79 sr 133/78 0 Circulatory - Right Pulses Dorsalis Pedis Femoral 1 1 Scale (0,1,2,3,4,d) Circulatory - Left Pulses Dorsalis Pedis Femoral 1 1 Scale (0,1,2,3,4,d) Neurological State Oriented to time-place- Alert Moves all extremities person Respiration - General Respiration Rate SpO2 (%) (B/min) 20 95 Chronological Log Time Study Chronological Log 14:37:20 Patient arrived via Bed. 14:37:21 Patient Name, D.O.B, / Armband Verified By R.N. 14:37:22 Consent signed by the physician and the patient and verified by the Store Mgr staff. 14:37:23 Pre-op and post- op instructions given; patient acknowledges understanding of instructions. 14:37:24 Verbal Stimulation=2 Physical Stimulation=2 Airway=2 Respiration=2 TOTAL=8. (0=absent, 1=li mited, 2=present) 14:37:28 Patient has been NPO for More than 6Hrs. 14:37:29 Skin Breakdown-none 14:37:30 Marge Prominences Protected 14:37:31 A # 20 IV was noted in the Antecubital (left). Grade = 0 14:37:31 Patient arrived on IV Solutions in Left Antecubital via Peripheral IV. Pump/Drip Flow = 20 ml/hr using NaCl .9. 14:37:32 History and physical on the chart or being dictated. Assessment: Initial Case, HR=74 BPM, Rhythm=sr, KSDC=753/75 mmhg, Chest Pain=0 Right Pulses: Shady Ped=1, Femoral=1 14:37:34 Left Pulses: Shady Ped=1, Femoral=1 Neurological: State=Alert, Ox3, SCOTT Respiration: Resp=11 B/min, SpO2=96 % Vitals capture started with the following parameters, Patient=Adult, Interval=5 min, Initial Pr axczwz=118 mmHg, 14:42:20 Deflation Rate=5 mmHg, Cuff placed on Right Arm 14:43:15 HR=76 bpm, WFNX=977/75 mmhg, SpO2=96 %, Resp=14 B/min 14:46:52 Reference ECG taken 14:48:04 HR=72 bpm, ZVVS=907/81 mmhg, SpO2=96 %, Resp=26 B/min 14:51:40 Positive Allens test performed on the right radial and ulnar artery. 14:53:05 HR=73 bpm, BRFV=670/85 mmhg, SpO2=96.0 %, Resp=24 B/min 14:54:33 Right groin and right wrist prepped with 2% chlorhexidine, and draped after a 3 min. waitin g time. 14:58:04 HR=76 bpm, KKKT=537/87 mmhg, SpO2=96.0 %, Resp=18 B/min 14:58:47 MD paged 14:59:18 Pressure channel 1 zeroed. 14:59:22 MD responded 15:02:48 MD arrived. 15:03:07 HR=75 bpm, UTFH=138/81 mmhg, SpO2=98.0 %, Resp=27 B/min Time Out. Correct patient, correct procedure, correct physician, labs, allergies, and equipment verified with cath lab technologist 15:03:47 team present. Fire risk assesment completed (see hard stop sheet for coding). Time Out Conc urred by MD and individual staff in procedure. 15:03:53 2 mg VERSED given in lab by Hawa Walker, LUIS MANUEL in Left Antecubital via Peripheral IV. Orde red by Carlin Wong. 15:04:05 50 mcg FENTANYL given in lab by Hawa Walker, RN in Left Antecubital via Peripheral IV. Ordered by Carlin Wong. 15:06:39 Case Start 20 mL 1% XYLOCAINE given in lab by Hawa Walker, RN in Right Radial via Subcutaneous. Ordere d by Marvin 15:06:40 Carlin. 15:07:03 Access site was Right Radial Artery . A SHEATH, FR6 RADIAL PRELUDE EASE 11CM FR 6 was advanced into the Radial (right) using the Perc utaneous 15::52 technique. 15:07:58 200 mcg NTG (IC) given in lab by Carlin Wong in Right Radial via Intra-coronary. Ordered by Carlin Wong. 15:08:02 HR=80 bpm, CZOV=006/75 mmhg, SpO2=95.0 %, Resp=20 B/min 15:08:27 In the Radial (right) the SHEATH, FR6 RADIAL PRELUDE EASE 11CM FR [address] by Carlin Wong. 5000 units HEPARIN given in lab by Hawa Walker, RN in Left Antecubital via Peripheral IV. O rdered by Marvin, 15:09:05 Carlin. A JR 5.0 INFINITI CATHETER FR 5 was advanced over a wire. OMNIPAQUE, 350 MG, 150ML 150ML was us ed for 15:10:09 injections. 15:10:51 The LCA was injected and visualized at various angles. OMNIPAQUE, 350 MG, 150ML 150ML used . After removing the current catheter a JL 3.5 INFINITI CATHETER FR 5 was advanced over a WIRE, E XCHANGE 260CM 15:11:10 3MMJ 260CM. 15:13:07 HR=77 bpm, OWUH=748/71 mmhg, Resp=17 B/min 15:13:42 The LCA was injected and visualized at various angles. OMNIPAQUE, 350 MG, 150ML 150ML used . Recorded Pressure: Ao, HR=78, Condition=Condition 1 15:14:10 (Aorta) Ao 105/71/85 15:18:04 Catheter was removed 15:18:06 HR=82 bpm, EDNN=488/79 mmhg, SpO2=93.0 %, Resp=19 B/min A XB 4.0 GUIDE CATHETER FR 6 was advanced over a wire. OMNIPAQUE, 350 MG, 150ML 150ML was used for 15:19:17 injections. 22 mL ANGIOMAX BOLUS given in lab by Carlin Wong in Left Antecubital via Peripheral IV. Orde red by Marvin, 15:20:53 Carlin. 15:21:23 A WIRE, RUNTHROUGH NS FLOPPY .014 180CM 180CM was inserted via Radial (right). 15:23:05 HR=76 bpm, UZIX=272/79 mmhg, SpO2=93.0 %, Resp=17 B/min 1.75 mg/kg/hr ANGIOMAX DRIP given in lab by Hawa Walker, RN in Left Antecubital via Periphe ral IV. Pump/Drip 15:24:40 Flow = 50.78 ml/hr using NaCl .9 with a concentration of 250 mg in 50 ml. Ordered by Alan Wong. An STENT, 2.25 8 INTEGRITY 2.25 8 Bare Metal Stent was inserted through a XB 4.0 GUIDE CATHETER FR 6 over a 15:26:50 WIRE, RUNTHROUGH NS FLOPPY .014 180CM 180CM. A STENT, 2.25 8 INTEGRITY 2.25 8 was deployed using a 30 MIC INDEFLATOR at 16 atmospheres for 1 2 seconds in 15:27:14 the OM2 Prox. 15:27:45 Delivery device removed 15:28:12 HR=77 bpm, EECQ=241/56 mmhg, SpO2=93.0 %, Resp=22 B/min An STENT, 2.5 8 INTEGRITY 2.5 8 Bare Metal Stent was inserted through a XB 4.0 GUIDE CATHETER F R 6 over a 15:28:51 WIRE, RUNTHROUGH NS FLOPPY .014 180CM 180CM. A STENT, 2.5 8 INTEGRITY 2.5 8 was deployed using a 30 MIC INDEFLATOR at 16 atmospheres for 11 seconds in the 15:30:15 CIRC Mid. 15:31:52 Delivery device removed 15:32:08 Wire removed 15:33:03 Case End (Physician broke scrub) 15:33:09 HR=79 bpm, GYKW=730/76 mmhg, SpO2=94.0 %, Resp=23 B/min Radial Compression Device Used. 12 mLs of air placed in BAND, RADIAL COMPRESSION TR LARGE 29 29 CM. Affected 15:37:36 hand 95 % O2 saturation. 15:38:06 SQGU=141/78 mmhg, SpO2=95.0 % 15:38:12 No case complications noted. 15:38:13 Cine recording checked. 15:38:15 Implantable Device card placed in patient's chart. 15:38:16 Bedside Report will be given. Assessment: Final Case, HR=79 BPM, Rhythm=sr, MBHI=745/78 mmhg, Chest Pain=0 Right Pulses: Shady Ped=1, Femoral=1 15:38:19 Left Pulses: Shady Ped=1, Femoral=1 Neurological: State=Alert, Ox3, SCOTT Respiration: Resp=20 B/min, SpO2=95 % 15:42:35 600 mg PLAVIX given in lab by Hawa Walker, RN via Oral. Ordered by Carlin Wong. 15:50:29 Patient moved to BED 15:52:40 Patient transported to DOCU. End Study - Contrast Media Used In Study Contrast Total Opened (mL) Total Used (mL) Total Wasted (mL) Omnipaque 130 130 0 End Study - Maximum Contrast Load Max Contrast Load (mL) 725.5 End Study - Radiation Exposure Fluoro Time Fluoro Dose (mGy) Cine Dose (uGym2) (minutes) 6.5 3636 74437 End Study - Sheaths Sheaths Pulled By Sheath Hold Time (min) Student, TIMBER INCISOR OPERATOR/RT(R) End Study - Patient Disposition Complications Transferred To Interventional Outcome No Store Mgr Holding successful
[2018-01-17] MEDS ORDERED: Benzonatate 100 MG Capsule PO ONE (00:53)
[2018-01-17 06:36] LABS: Baso % (Auto) 0.2 % (0.0-2.0); Eos % (Auto) 0.1 % (0.0-4.0); Hematocrit 47.5 % (39.0-51.0); Hemoglobin 15.6 gm/dL (13.0-17.0); Lymph # (Auto) 1.6 th/mm3 (1.0-4.8); Lymph % (Auto) 13.9 % (9.0-44.0); Mean Corpuscular HGB Conc 32.7 % (32.0-36.0); Mean Corpuscular Hemoglobin 29.6 pg (27.0-34.0); Mean Corpuscular Volume 90.6 fL (80.0-100.0); Mean Platelet Volume 8.2 fL (7.0-11.0); Mono # (Auto) 0.7 th/mm3 (0.0-0.9); Mono % (Auto) 5.9 % (0.0-8.0); Neut # (Auto) 9.2 th/mm3 (1.8-7.7); Neut % (Auto) 79.9 % (16.0-70.0); Platelet Count 236 th/mm3 (150-450); Red Blood Count 5.25 mil/mm3 (4.50-5.90); Red Cell Distribution Width 14.2 % (11.6-17.2); White Blood Count 11.5 th/mm3 (4.0-11.0)
[2018-01-17 07:21] LABS: Calcium 8.7 mg/dL (8.5-10.1); Carbon Dioxide 28.5 meq/L (21.0-32.0); Chol/HDL Ratio 5.62 Ratio; HDL Cholesterol 41.4 mg/dL (40.0-60.0); Magnesium 2.6 mg/dL (1.5-2.5); Potassium 4.1 meq/L (3.5-5.1)
[2018-01-17] MEDS: Metoprolol Tartrate 25 MG Tablet PO SCH (08:23)
[2018-01-17] MEDS: Lisinopril 10 MG Tablet PO SCH (08:24)
[2018-01-17] MEDS: Aspirin 325 MG Tablet PO SCH (08:24)
[2018-01-17] MEDS: predniSONE 20 MG Tablet PO SCH (08:25)
[2018-01-17] MEDS: FLUoxetine 20 MG Capsule PO SCH (08:25)
[2018-01-17] MEDS: Insulin NovoLOG Aspart Correctional Sugar Inj SQ SCH ×2 (08:26→13:25)
--- NOTE | 2018-01-17 09:05 | P.PNCA ---
Subjective Interval history: Breathing is much better. Reports good urine output with diuresis. Reports no significant leg swelling. Denies any chest pain. No issues with right wrist access site. Hoping to go home today. He states he plans to follow-up with Dr. Carballo as outpatient. Medications and Allergies Active Medications: Active Medications Acetaminophen (Tylenol) 650 mg PO Q4H PRN PRN Reason: Temp > 100.4 Last Admin: 01/14/18 20:32 Dose: 650 mg Al Hydroxide/Mg Hydroxide (Milk Of Magnesia Liq) 30 ml PO Q12H PRN PRN Reason: Mild Constipation Albuterol (Duoneb Neb ([facility])) 1 ampul NEB Q6HR WHILE AWAKE NEB [facility] Last Admin: 01/17/18 08:27 Dose: 1 ampul Aspirin (Aspirin) 325 mg PO DAILY [facility] Last Admin: 01/17/18 08:24 Dose: 325 mg Atorvastatin Calcium (Lipitor) 80 mg PO HS [facility] Last Admin: 01/16/18 21:39 Dose: 80 mg Bisacodyl (Dulcolax Supp) 10 mg RECTAL DAILY PRN PRN Reason: SEVERE CONSITIPATION Clopidogrel Bisulfate (Plavix) 75 mg PO DAILY [facility] Last Admin: 01/17/18 08:23 Dose: 75 mg Dextrose (D50w Vial) 50 ml IV.PUSH UNSCH PRN PRN Reason: PER HYPOGLYCEMIA PROTOCOL Enalaprilat (Vasotec Inj) 1.25 mg IV.PUSH Q6H PRN PRN Reason: SEE LABEL COMMENTS Fluoxetine HCl (Prozac) 40 mg PO DAILY [facility] Last Admin: 01/17/18 08:25 Dose: 40 mg Furosemide (Lasix Inj) 40 mg IV.PUSH BID@0900,1800 [facility] Last Admin: 01/17/18 08:25 Dose: 40 mg Glucagon (Glucagon Inj) 1 mg OTHER UNSCH PRN PRN Reason: for Hypoglycemia Protocol Insulin Aspart (Novolog Insulin Correctional Sugar Inj) 0 unit SQ ACHS [facility]; Protocol Last Admin: 01/17/18 08:26 Dose: 1 unit Lactulose (Lactulose Liq) 30 ml PO DAILY PRN PRN Reason: SEVERE CONSITIPATION Lisinopril (Prinivil) 10 mg PO DAILY [facility] Last Admin: 01/17/18 08:24 Dose: 10 mg Metoprolol Tartrate (Lopressor) 25 mg PO BID [facility] Last Admin: 01/17/18 08:23 Dose: 25 mg Nitroglycerin (Nitrostat Sl) 0.4 mg SL Q5M PRN PRN Reason: DYSPNEA Ondansetron HCl (Zofran Inj) 4 mg IV.PUSH Q6H PRN PRN Reason: NAUSEA OR VOMITING Potassium Chloride (K-Dur) 20 meq PO BID [facility] Last Admin: 01/17/18 08:22 Dose: 20 meq Prednisone (Deltasone) 20 mg PO BID [facility] Stop: 01/18/18 20:59 Last Admin: 01/17/18 08:25 Dose: 20 mg Sennosides (Senokot) 17.2 mg PO Q12H PRN PRN Reason: Moderate Constipation Sodium Chloride (Ns Flush) 2 ml IV.FLUSH BID [facility] Last Admin: 01/17/18 08:24 Dose: 2 ml Sodium Chloride (Ns Flush) 2 ml IV.FLUSH PRN PRN PRN Reason: FLUSH AFTER USING IV ACCESS Allergies Allergy/AdvReac Type Severity Reaction Status Date / Time Sulfa (Sulfonamide Allergy Unknown Rash Verified 01/14/18 10:24 Antibiotics) Home Medications Medication Instructions Recorded Confirmed Type fluticasone-vilanterol [Breo 1 inh INHALATION DAILY PRN 01/14/18 01/14/18 History Ellipta] umeclidinium-vilanterol [Anoro 1 inh INHALATION Q24H PRN 01/14/18 01/14/18 History Ellipta] fluoxetine [Prozac] 40 mg PO DAILY 01/16/18 01/16/18 History Physical Exam Vital signs: Vital Signs 01/16/18 12:00 01/16/18 16:00 01/16/18 18:00 Temperature 97.9 F Pulse Rate 73 71 Respiratory Rate 16 Blood Pressure 101/69 Pulse Oximetry 95 96 01/16/18 19:00 01/16/18 20:00 01/16/18 21:00 Temperature 98.5 F Pulse Rate 84 92 H 84 Respiratory Rate 22 Blood Pressure 125/81 Pulse Oximetry 97 01/16/18 21:52 01/16/18 22:00 01/16/18 23:00 Temperature Pulse Rate 95 H 88 78 Respiratory Rate 18 18 Blood Pressure 95/52 L Pulse Oximetry 95 01/17/18 00:00 01/17/18 01:00 01/17/18 02:00 Temperature Pulse Rate 83 88 88 Respiratory Rate Blood Pressure Pulse Oximetry 01/17/18 03:00 01/17/18 04:00 01/17/18 05:00 Temperature 98.2 F Pulse Rate 84 79 79 Respiratory Rate 16 Blood Pressure 122/62 Pulse Oximetry 93 L 01/17/18 06:00 01/17/18 08:28 Temperature Pulse Rate 79 77 Respiratory Rate 16 Blood Pressure Pulse Oximetry Intake & Output 01/16/18 01/17/18 01/17/18 18:59 06:59 18:59 Intake Total 210 / 210 1500 / 1500 Output Total 1350 / 1350 Balance 210 / 210 150 / 150 Weight 319 lb 10.724 oz Intake: IV 10 / 10 Heparin/NS PF Inj 1,000 ML @ 0 10 / 10 mls/hr .ROUTE .Tryolabs ONE Rx#: [id number] Oral 1500 / 1500 Anesthesia Amount 200 / 200 Output: Urine 1350 / 1350 Other: Date of Last Bowel Movement 01/14/18 01/16/18 Narrative: GENERAL: Well-developed well-nourished. Obese. In no acute distress. NECK: No carotid bruits. No JVD. CARDIOVASCULAR: Regular rate and rhythm. No murmur appreciated. RESPIRATORY: No accessory muscle use. Clear to auscultation. Breath sounds equal bilaterally. MUSCULOSKELETAL: Right radial and ulnar pulses intact. Trace lower extremity edema with venous varicosities noted. NEUROLOGICAL: Awake and alert. Normal speech. Results 01/17/18 05:30 01/17/18 05:30 Lipids 01/17/18 Range/Units 05:30 Triglycerides 191 H (42-150) mg/dL Cholesterol 233 H (120-200) mg/dL HDL Cholesterol 41.4 (40.0-60.0) mg/dL Cholesterol/HDL Ratio 5.62 Ratio CBC 01/17/18 Range/Units 05:30 WBC 11.5 H (4.0-11.0) th/mm3 RBC 5.25 (4.50-5.90) mil/mm3 Hgb 15.6 (13.0-17.0) gm/dL Hct 47.5 (39.0-51.0) % Plt Count 236 (150-450) th/mm3 Neut # (Auto) 9.2 H (1.8-7.7) th/mm3 Lymph # (Auto) 1.6 (1.0-4.8) th/mm3 [place] # (Auto) 0.7 (0.0-0.9) th/mm3 Eos # (Auto) 0.0 (0.0-0.4) th/mm3 Baso # (Auto) 0.0 (0.0-0.2) th/mm3 Comprehensive Metabolic Panel 01/17/18 Range/Units 05:30 Sodium 137 (136-145) meq/L Potassium 4.1 (3.5-5.1) meq/L Chloride 101 (98-107) meq/L Carbon Dioxide 28.5 (21.0-32.0) meq/L BUN 31 H (7-18) mg/dL Creatinine 1.12 (0.60-1.30) mg/dL Calcium 8.7 (8.5-10.1) mg/dL Intake and Output 01/16/18 01/17/18 01/17/18 22:59 06:59 14:59 Intake Total 210 / 210 1500 / 1500 Output Total 1350 / 1350 Balance 210 / 210 150 / 150 Intake: IV 10 / 10 Heparin/NS PF Inj 1,000 ML @ 0 10 / 10 mls/hr .ROUTE .STK-MED ONE Rx#: [id number] Oral 1500 / 1500 Anesthesia Amount 200 / 200 Output: Urine 1350 / 1350 Other: Date of Last Bowel Movement 01/14/18 01/14/18 01/16/18 Weight 319 lb 10.724 oz - Imaging and Cardiology Imaging: Impressions Myocardial Perfusion Scan Nuc Med 01/15/18 00:00 CONCLUSION: 1. Redistribution as above suggesting ischemia. Assessment and Plan - Assessment (1) Acute on chronic combined systolic and diastolic ACC/AHA stage C congestive heart failure Code(s): I50.43 - Acute on chronic combined systolic (congestive) and diastolic (congestive) heart failure Status: Acute (2) Abnormal stress test Code(s): R94.39 - Abnormal result of other cardiovascular function study Status: Acute - Plan Acute on chronic systolic and diastolic congestive heart failure Diuresing well with IV Lasix, convert to oral at discharge. Ischemic cardiomyopathy Echo with EF 40-45%. Continue guideline directed medical therapy with carvedilol and lisinopril. CAD C 01/16/18 with PCI and stent x2 to LCx. Continue aspirin, Plavix, atorvastatin. Discharge planning from cardiology perspective. Discussed Condition With: Patient, Dr. Wong
--- NOTE | 2018-01-17 10:46 | P.PN ---
Subjective Interval history: telemtry in no complains no chest pain shortness of breath Physical Exam Vital signs: Vital Signs 01/16/18 12:00 01/16/18 16:00 01/16/18 18:00 Temperature 97.9 F Pulse Rate 73 71 Respiratory Rate 16 Blood Pressure 101/69 Pulse Oximetry 95 96 01/16/18 19:00 01/16/18 20:00 01/16/18 21:00 Temperature 98.5 F Pulse Rate 84 92 H 84 Respiratory Rate 22 Blood Pressure 125/81 Pulse Oximetry 97 01/16/18 21:52 01/16/18 22:00 01/16/18 23:00 Temperature Pulse Rate 95 H 88 78 Respiratory Rate 18 18 Blood Pressure 95/52 L Pulse Oximetry 95 01/17/18 00:00 01/17/18 01:00 01/17/18 02:00 Temperature Pulse Rate 83 88 88 Respiratory Rate Blood Pressure Pulse Oximetry 01/17/18 03:00 01/17/18 04:00 01/17/18 05:00 Temperature 98.2 F Pulse Rate 84 79 79 Respiratory Rate 16 Blood Pressure 122/62 Pulse Oximetry 93 L 01/17/18 06:00 01/17/18 07:00 01/17/18 08:00 Temperature 97.8 F Pulse Rate 79 76 80 Respiratory Rate 18 Blood Pressure 105/60 Pulse Oximetry 95 95 01/17/18 08:28 01/17/18 09:00 01/17/18 10:00 Temperature Pulse Rate 77 86 76 Respiratory Rate 16 Blood Pressure Pulse Oximetry Intake & Output 01/16/18 01/17/18 01/17/18 18:59 06:59 18:59 Intake Total 210 / 210 1500 / 1500 Output Total 1350 / 1350 Balance 210 / 210 150 / 150 Weight 145 kg Intake: IV 10 / 10 Heparin/NS PF Inj 1,000 ML @ 0 10 / 10 mls/hr .ROUTE .[facility] Rx#: [id number] Oral 1500 / 1500 Anesthesia Amount 200 / 200 Output: Urine 1350 / 1350 Other: Date of Last Bowel Movement 01/14/18 01/16/18 Narrative: GENERAL: In no acute distress. NECK: No carotid bruits. No JVD. CARDIOVASCULAR: Regular rate and rhythm. RESPIRATORY: No accessory muscle use. Clear to auscultation. Breath sounds equal bilaterally. MUSCULOSKELETAL: Right radial and ulnar pulses intact. - good pulses NEUROLOGICAL: Awake and alert. Normal speech. Results - Labs CBC & Chem 7: 01/17/18 05:30 01/17/18 05:30 Laboratory Results - last 24 hr 01/16/18 01/16/18 01/16/18 11:52 17:29 20:34 WBC RBC Hgb Hct MCV MCH MCHC RDW Plt Count MPV Neut % (Auto) Lymph % (Auto) Gordon % (Auto) Eos % (Auto) Baso % (Auto) Neut # (Auto) Lymph # (Auto) Gordon # (Auto) Eos # (Auto) Baso # (Auto) WBC Differential Differential Comment Sodium Potassium Chloride Carbon Dioxide Anion Gap BUN Creatinine Estimated GFR POC Glucose 96 130 H 153 H Random Glucose Calcium Magnesium Triglycerides Cholesterol LDL Cholesterol, Calc HDL Cholesterol Cholesterol/HDL Ratio 01/17/18 01/17/18 01/17/18 05:30 05:30 07:37 WBC 11.5 H RBC 5.25 Hgb 15.6 Hct 47.5 MCV 90.6 MCH 29.6 MCHC 32.7 RDW 14.2 Plt Count 236 MPV 8.2 Neut % (Auto) 79.9 H Lymph % (Auto) 13.9 Gordon % (Auto) 5.9 Eos % (Auto) 0.1 Baso % (Auto) 0.2 Neut # (Auto) 9.2 H Lymph # (Auto) 1.6 Gordon # (Auto) 0.7 Eos # (Auto) 0.0 Baso # (Auto) 0.0 WBC Differential . Differential Comment Auto diff final Sodium 137 Potassium 4.1 Chloride 101 Carbon Dioxide 28.5 Anion Gap 8 BUN 31 H Creatinine 1.12 Estimated GFR 68 L POC Glucose 159 H Random Glucose 152 H Calcium 8.7 Magnesium 2.6 H Triglycerides 191 H Cholesterol 233 H LDL Cholesterol, Calc 153 H HDL Cholesterol 41.4 Cholesterol/HDL Ratio 5.62 - Procedures cardiac cath 01/16- stents place Assessment and Plan - Plan 57-year-old white male with a history of diet-controlled diabetes mellitus, COPD presents to the emergency room with 4-day history of dyspnea on exertion, orthopnea, PND New Onset CHF with Shortness of breath/Dyspnea/LE Edema: suspected new onset of congestive heart failure exacerbation CAD, s/p stent LCx HYpertension change to po lasix 40 mg bid cotninue crdaic meds Mild COPD Exacerbation: exam improved- no wheezes - likely CHF related -S/p prednisone 50mg x1 in the ED -will continue with prednisone 20mg bid x3days -continue with DuoNeb treatments -O2 as needed quit smoking eyars ago Diabetes mellitus: diet controlled- has been off Metformin for years- since he loss weight -no active complications -continue with glucose monitor with sliding scale insulin. -expect higher blood glucose while on steroids, monitor closely DVT prophylaxisLovenox sq DC home today advise OP ff up with PCP- Dr. treviño patient prefers to ff hup with Dr. 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
[2018-01-17 13:12] VITALS: RESP 20
[2018-01-17 13:53] VITALS: BP 109/58; TEMP 99; O2SAT 96
[2018-01-17 16:08] VITALS: PULSE 84
[2018-01-17] MEDS ORDERED: Furosemide 20 MG Tablet PO SCH (18:00)
[2018-01-17] MEDS ORDERED: Potassium Chloride 10 MEQ ER Capsule PO SCH (21:00)
[2018-01-17] MEDS ORDERED: Carvedilol 6.25 MG Tablet PO SCH (21:00)
--- NOTE | 2018-01-21 20:57 | P.DS ---
Date of admission: 01/14/18 11:52 Primary care physician: Tiffany Treviño MD Attending physician on discharge: Elvie York Anticipated date of discharge: 01/17/18 Brief History from admission: 57-year-old white male with a history of COPD, diet-controlled diabetes mellitus presents to the emergency room with a 4-day history of worsening shortness of breath particularly on physical exertion and when he lays flat. Last night he had difficulty sleeping laying flat and only got 2 hours of sleep therefore came in for evaluation. He denies any productive cough or associated chills or fever. He thought initially was an upper sinus congestion and took some [id number] Mucinex which did not relieve his symptoms. He reports he had abnormal EKG in the past which may had showed some damage of his heart however has not had any type of stress test in the past. He denies a history of congestive heart failure. He denies any symptoms of increased lower extremity swelling. He reports some chest pressure that is only present when he has a hard time breathing. Patient update on day of discharge: no chest pain stable vital signs DS: Medications - Discharge Medications Prescriptions: aspirin 81 mg PO DAILY 90 Days #90 tab atorvastatin 80 mg PO HS 30 Days #30 tab carvedilol [Coreg] 6.25 mg PO BID 30 Days #60 tab clopidogrel [Plavix] 75 mg PO DAILY #30 tab furosemide 20 mg PO BID@0900,1800 30 Days tab lisinopril 10 mg PO DAILY 30 Days #30 tab potassium chloride 10 meq PO BID 30 Days #60 cap DS: Summary Hospital Course: 57-year-old white male with a history of diet-controlled diabetes mellitus, COPD presents to the emergency room with 4-day history of dyspnea on exertion, orthopnea, PND New Onset CHF with Shortness of breath/Dyspnea/LE Edema: suspected new onset of congestive heart failure exacerbation CAD, s/p stent LCx HYpertension change to po lasix 40 mg bid cotninue crdaic meds Mild COPD Exacerbation: exam improved- no wheezes - likely CHF related -S/p prednisone 50mg x1 in the ED -will continue with prednisone 20mg bid x3days -continue with DuoNeb treatments -O2 as needed quit smoking eyars ago Diabetes mellitus: diet controlled- has been off Metformin for years- since he loss weight -no active complications -continue with glucose monitor with sliding scale insulin. -expect higher blood glucose while on steroids, monitor closely DVT prophylaxisLovenox sq DC home today advise OP ff up with PCP- Dr. 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 NECK: No carotid bruits. No JVD. CARDIOVASCULAR: Regular rate and rhythm. RESPIRATORY: No accessory muscle use. Clear to auscultation. Breath sounds equal bilaterally. MUSCULOSKELETAL: Right radial and ulnar pulses intact. - good pulses NEUROLOGICAL: Awake and alert. Normal speech. Results Procedures completed during hospitalization: cardiac cath 01/16- stents place - Impressions ITS Impressions Chest X-Ray 01/14/18 09:40 CONCLUSION: Negative examination. Myocardial Perfusion Scan Nuc Med 01/15/18 00:00 CONCLUSION: 1. Redistribution as above suggesting ischemia. Discharge Plan - Discharge Disposition Patient Disposition: 01 Discharge Home - Discharge Condition Condition: Stable - Discharge Order Discharge Orders: Discharge Order (Routine); Ordered 01/17/18 Ordered By: Elvie York Cardiology Clear for Discharge (Routine); Ordered 01/17/18 Ordered By: Carlin Wong ED Use Only Admit Order (Routine); Ordered 01/14/18 Ordered By: Bill Mooney - Discharge Details Anticipated Discharge Date: 01/17/18 - Physicians Team Primary Care Provider: Tiffany Treviño Attending Provider: Elvie York Other Providers: Carlin Wong MD
== END 2018-01-17 15:28 | disposition home or self-care (01) ==
LOC: NEDA 08:58 → NEPE 08:58 → NEPHCDU 13:10 → HCIS 01-16 15:35
PROVIDERS: ADMIT Internal Medicine; ATTEND Internal Medicine